=== PATIENT | male | born 1970 | race Caucasian/White ===

== ENCOUNTER → 2018-06-19 | Outpatient (CLI) | payer SELFPAY ==
--- NOTE | 2018-06-19 13:43 | Diagnostic Imaging Report ---
PROCEDURE: CT head without contrast. TECHNIQUE: Multiple contiguous axial images were obtained through the brain without the use of intravenous contrast. INDICATION: Headache, blurry vision and dizziness. FINDINGS: The ventricles and sulci are within normal limits. There is no hydrocephalus or cerebral edema. There is no midline shift or mass effect. There is no intracranial mass, hemorrhage, or extra-axial fluid collection. The visualized paranasal sinuses and mastoid air cells are clear. There are no regional areas of decreased attenuation appreciated to suggest an acute CVA. IMPRESSION: No acute intracranial abnormality. Dictated by: Dictated on workstation # [id number]
== END ==
LOC: RAD 12:38
PROVIDERS: ATTEND Internal Medicine
DX: K64.5 Perianal venous thrombosis (principal); H53.8 Other visual disturbances; R51 Headache
CPT/HCPCS: 70450